=== PATIENT | male | born 1950 | race Caucasian/White ===

== ENCOUNTER 2023-04-20 11:53 | Inpatient (IN) | payer MEDICARE, OTHER ==
[~2023-04-20] VITALS: Ht 170.2 cm; Wt 87.0 kg
[~2023-04-20 11:53] MED LIST: ASPITAB37 OR; DIGO0.1262 OR; ENAL1TAB42 OR; ENAL1TAB47 OR; METF-489 OR
[2023-04-20] MEDS ORDERED: IOHEXOL 350 MG/ML 100ML IJ ONE (12:21)
[2023-04-20 12:58] LABS: Basophils # (auto) 0 10 ^3/uL (0-0.2); Basophils % (auto) 0.2 % (0.0-2.0); Eosinophils # (auto) 0.1 10 ^3/uL (0-0.8); Eosinophils % (auto) 0.3 % (0.0-7.0); Hematocrit 31.8 % (41.0-53.0); Hemoglobin 9.8 g/dL (13.5-17.5); Lymphocytes # (auto) 0.6 10 ^3/uL (0.4-5.4); Lymphocytes % (auto) 3.8 % (10.0-50.0); Mean Corpuscular Hemoglobin 28.6 pg (28.0-32.0); Mean Corpuscular Hgb Conc. 30.8 g/dL (32.0-36.0); Mean Corpuscular Volume 92.7 fL (80.0-100.0); Monocytes # (auto) 0.4 10 ^3/uL (0-1.3); Monocytes % (auto) 2.4 % (0.0-12.0); Neutrophils # (auto) 16.1 10 ^3/uL (1.6-8.6); Neutrophils % (auto) 93.3 % (37.0-80.0); Red Blood Cells 3.43 10^6/uL (4.5-5.90); Red Cell Distribution Width 17.7 % (11.8-14.3); White Blood Cell 17.2 10^3/uL (4.4-10.8)
[2023-04-20 13:16] VITALS: PULSE 105; RESP 16; O2SAT 96
[2023-04-20 13:16] LABS: INR 2.8 (0.9-1.15); Partial Thromboplastin Time 56.1 SEC (24.5-34.5); Prothrombin Time 27.5 sec (9.3-11.8)
[2023-04-20 13:22] LABS: Base Excess -0.9 mmol/L (-2.0-2.0)
[2023-04-20 13:38] LABS: Alanine Aminotransferase 97 U/L (7-40); Albumin 3.7 g/dL (3.2-4.8); Alkaline Phosphatase 153 U/L (46-116); Aspartate Aminotransferase 183 U/L (13-40); BUN/Creatinine Ratio 20.2 (10.0-20.0); Blood Urea Nitrogen 18 mg/dL (9-23); Calcium 8.4 mg/dL (8.7-10.4); Chloride 104 mmol/L (98-107); Glucose 153 mg/dL (74-106); Sodium 135 mmol/L (136-145)
[2023-04-20 13:39] LABS: Bilirubin, Total 0.8 mg/dL (0.2-1.0); Total Protein 6.3 g/dL (5.7-8.2)
[2023-04-20] MEDS ORDERED: MORPHINE SULFATE INJ 2 MG/ml SYRG IV ONE (13:45)
[2023-04-20] MEDS ORDERED: ONDANSETRON HCL 4 MG/2 ML VIAL IV ONE (13:45)
[2023-04-20] MEDS ORDERED: ENOXAPARIN SOD 100 MG/1 ML SYRINGE SC ONE (13:45)
[2023-04-20 14:32] LABS: Urine Bacteria FEW /hpf (None Seen); Urine Blood Negative /uL (Negative); Urine Clarity HAZY (Clear); Urine Color Yellow (Yellow); Urine Protein, UAD 2+ (Negative); Urine Urobilinogen Normal (Negative); Urine WBC 11 /hpf (0 - 3); Urine pH 6.5 (5.0-8.0)
[2023-04-20] MEDS ORDERED: MORPHINE SULFATE INJ 2 MG/ml SYRG IV PRN ×2 (14:45)
[2023-04-20] MEDS ORDERED: ONDANSETRON HCL 4 MG/2 ML VIAL IV PRN (14:45)
[2023-04-20] MEDS ORDERED: HYDROcodone-ACET 5/325MG TAB PO ONE (14:45)
[2023-04-20] MEDS ORDERED: HYDROcodone-ACET 5/325MG TAB PO PRN (14:45)
[2023-04-20] MEDS ORDERED: NITROGLYCERIN 0.4 MG SL TAB SL PRN (14:45)
[2023-04-20] MEDS ORDERED: DEXTROSE (50%) 50ML SYRG IV PRN (14:45)
[2023-04-20] MEDS: InsuLIN REG 1unit/0.01ml Soln (100units/ml) SC SCH ×2 (17:00→22:00)
[2023-04-20] MEDS: HYDROcodone-ACET 10/325MG TAB PO PRN ×2 (17:07→21:43)
[2023-04-20] MEDS: ACCU-CHEK COMFORT CURVE STRIP VI SCH ×2 (18:34→22:00)
[2023-04-20] MEDS: APIXABAN 5 MG TAB PO SCH (21:43)
[2023-04-20] MEDS: ENALAPRIL MALEATE 2.5 MG TAB PO SCH (21:45)
[2023-04-20 23:31] VITALS: PULSE 88; RESP 25; O2SAT 98
[2023-04-21] MEDS: HYDROcodone-ACET 10/325MG TAB PO PRN ×4 (04:28→23:19)
[2023-04-21] MEDS: InsuLIN REG 1unit/0.01ml Soln (100units/ml) SC SCH ×4 (07:00→22:00)
[2023-04-21] MEDS: ACCU-CHEK COMFORT CURVE STRIP VI SCH ×4 (07:00→22:00)
[2023-04-21 07:35] VITALS: PULSE 89; RESP 25; O2SAT 100
[2023-04-21] MEDS: APIXABAN 5 MG TAB PO SCH ×3 (10:00→23:20)
[2023-04-21] MEDS: ENALAPRIL MALEATE 2.5 MG TAB PO SCH ×3 (10:00→23:19)
[2023-04-21] MEDS: FAMOTIDINE 20 MG TAB PO SCH (10:51)
[2023-04-21] MEDS ORDERED: AMIO200T33 PO (22:27)
[2023-04-21] MEDS: METOPROLOL TARTRATE 25 MG TAB PO SCH (23:18)
[2023-04-21] MEDS: AMIODARONE HCL 200 MG TAB PO SCH (23:19)
[2023-04-22] MEDS ORDERED: METOPROLOL TARTRATE 1MG/1ML-5ML VIAL IV ONE (00:49)
[2023-04-22] MEDS ORDERED: SODIUM CHLORIDE 0.9% 250 ML IV ONE (01:00)
[2023-04-22] MEDS ORDERED: METOPROLOL TARTRATE 1MG/1ML-5ML VIAL IV PRN (01:00)
[2023-04-22 02:04] VITALS: BP 112/80; PULSE 100; PULSE 110; RESP 19; RESP 21; TEMP 98.4
[2023-04-22] MEDS: HYDROcodone-ACET 10/325MG TAB PO PRN ×2 (04:20→08:53)
[2023-04-22 05:00] VITALS: BP 123/77; PULSE 97; RESP 19; TEMP 98.3; O2SAT 96
[2023-04-22] MEDS: InsuLIN REG 1unit/0.01ml Soln (100units/ml) SC SCH ×2 (07:00→11:17)
[2023-04-22] MEDS: ACCU-CHEK COMFORT CURVE STRIP VI SCH ×2 (07:30→11:17)
[2023-04-22 08:30] VITALS: PULSE 96; RESP 18; O2SAT 100
[2023-04-22] MEDS: ENALAPRIL MALEATE 2.5 MG TAB PO SCH (08:53)
[2023-04-22] MEDS: FAMOTIDINE 20 MG TAB PO SCH (08:53)
[2023-04-22 08:54] VITALS: BP 121/86; PULSE 96; RESP 18; TEMP 98.8; O2SAT 100
[2023-04-22] MEDS: METOPROLOL TARTRATE 25 MG TAB PO SCH (08:54)
[2023-04-22] MEDS: APIXABAN 5 MG TAB PO SCH (08:54)
[2023-04-22] MEDS: AMIODARONE HCL 200 MG TAB PO SCH (08:54)
[2023-04-22] MEDS ORDERED: METO25TA5 PO (11:08)
[2023-04-22] MEDS ORDERED: AMIO200T33 PO (11:08)
[2023-04-22 11:58] VITALS: BP 121/86; PULSE 96; RESP 18; TEMP 98.8; O2SAT 100
[2023-04-22 12:41] VITALS: BP 100/67; PULSE 87; RESP 18; TEMP 98.5; O2SAT 91
== END 2023-04-22 13:20 | disposition home or self-care (01) | DRG 299 ==
LOC: ER 11:53 → EDUNIT# 11:53 → EDBD 11:53 → TELE 14:51 → TELE-WESTW 04-21 23:35
PROVIDERS: ADMIT Hospitalist; ATTEND Hospitalist
DX: I87.1 Compression of vein (principal); I26.99 Other pulmonary embolism without acute cor pulmonale; J93.9 Pneumothorax, unspecified; D68.59 Other primary thrombophilia; C34.90 Malignant neoplasm of unspecified part of unspecified bronchus or lung; I25.10 Atherosclerotic heart disease of native coronary artery without angina pectoris; I45.10 Unspecified right bundle-branch block; I11.9 Hypertensive heart disease without heart failure; E11.9 Type 2 diabetes mellitus without complications; Z95.1 Presence of aortocoronary bypass graft; Z83.3 Family history of diabetes mellitus; Z88.1 Allergy status to other antibiotic agents; Z88.6 Allergy status to analgesic agent; Z79.01 Long term (current) use of anticoagulants
CPT/HCPCS: 36415; 36600; 70450; 71275; 80053; 81001; 82805; 82962; 83605; 83880; 84484; 85025; 85610; 85730; 87040; 93306; G0378; J1815